=== PATIENT | male | born 1945 | race Caucasian/White ===

== ENCOUNTER 2016-11-12 10:47 | Inpatient (IN) | payer SELFPAY ==
[2016-11-12] MEDS ORDERED: Haloperidol Lactate 5 mg/mL 1mL Vial IM PRN (11:06)
[2016-11-12] MEDS ORDERED: Haloperidol Lactate 5 mg/mL 1mL Vial ONE (11:10)
--- NOTE | 2016-11-12 11:23 | ED Physician Chart ---
Chief Complaint/HPI - Patient Information Date Seen:: 11/12/16 Time Seen:: 11:00 Chief Complaint:: agitation History of Present Illness:: This elderly white male was brought to the emergency department by the police. He was placed on the fifth 150. He was found panhandling and yelling at people walking by. Patient refuses to give his name. He did state something like that if he was given any antipsychotic medications some gangsters would kill him. Allergies:: Allergies Allergy/AdvReac Type Severity Reaction Status Date / Time No Known Allergies Allergy Verified 11/12/16 10:53 Vitals:: Vital Signs - 8 hr 11/12/16 10:54 HR 110 RR 20 BP 117/89 Historian:: Patient, Other (Police Department) Review:: Nurse's Note Reviewed Review of Systems - Review of Systems General/Constitutional: No fever, No chills Skin: No skin lesions Head: No headache Eyes: No loss of vision ENT: No earache Neck: No neck pain Cardio Vascular: No chest pain, No palpitations Pulmonary: No SOB GI: No nausea, No vomiting G/U: No dysuria Musculoskeletal: No bone or joint pain Endocrine: No polyuria, No polydipsia Psychiatric: Other (unknown) Hematopoietic: No bruising Allergic/Immuno: No urticaria Neurological: No syncope Family Medical History - Family Member Father History Unknown: Yes Physical Exam - Physical Examination General/Constitutional: Well-developed, well-nourished, Alert, No distress, Non- toxic appearing, Ambulatory Other Gen/Cons comments:: Belligerent and disheveled. Patient refuses to answer questions concerning orientation, history of present illness, review of systems, family history, past medical history. When asked questions patient replies none of your business. Labs/Radiology/EKG Results - Lab Results Results: Laboratory Results - last 24 hr 11/12/16 11/12/16 11/12/16 11:20 11:20 11:20 WBC 19.8 H RBC 4.87 Hgb 15.6 Hct 46.0 MCV 94.4 MCH 31.9 H MCHC Differential 33.8 RDW 13.3 Plt Count 400 MPV 7.5 Sodium 135 L Potassium 3.9 Chloride 110 H Carbon Dioxide 23.8 Anion Gap 5.1 L BUN 12 Creatinine 0.8 Est GFR ( Amer) > 60.0 Est GFR (Non-Af Amer) > 60.0 BUN/Creatinine Ratio 15.0 Glucose 166 H Calcium 9.3 Triglycerides 101 Cholesterol 125 LDL Cholesterol Direct 76 HDL Cholesterol 43 Urine Source Urine Color Urine Clarity Urine pH Ur Specific [place] Urine Protein Urine Glucose (UA) Urine Ketones Urine Blood Urine Nitrate Urine Bilirubin Urine Urobilinogen Ur Leukocyte Esterase Urine RBC Urine WBC Ur Epithelial Cells Urine Bacteria Urine Mucus Salicylates < 25.0 L Acetaminophen < 10.0 L Ethyl Alcohol 181 H 11/12/16 11:30 WBC RBC Hgb Hct MCV MCH MCHC Differential RDW Plt Count MPV Sodium Potassium Chloride Carbon Dioxide Anion Gap BUN Creatinine Est GFR ( Amer) Est GFR (Non-Af Amer) BUN/Creatinine Ratio Glucose Calcium Triglycerides Cholesterol LDL Cholesterol Direct HDL Cholesterol Urine Source CLEAN C Urine Color YELLOW Urine Clarity CLEAR Urine pH 5.5 Ur Specific [place] 1.025 Urine Protein NEGATIVE Urine Glucose (UA) 500 H Urine Ketones TRACE Urine Blood NEGATIVE Urine Nitrate NEGATIVE Urine Bilirubin SMALL H Urine Urobilinogen 0.2 Ur Leukocyte Esterase NEGATIVE Urine RBC NONE SEEN Urine WBC 0-2 Ur Epithelial Cells FEW Urine Bacteria NONE SEEN Urine Mucus FEW Salicylates Acetaminophen Ethyl Alcohol - Radiology Results Results: CXR negative Assessment - Assessment General Assessment: has to be admitted because was placed on a [facility]0. ED Septic Shock - . Is Septic Shock (SBP<90, OR Lactate>4 mmol\L) present?: No - <6hrs of presentation: Vital Signs: Vital Signs - 8 hr 11/12/16 10:54 HR 110 RR 20 BP 117/89 Reassessment (Disposition) - Reassessment Reassessment Condition:: Unchanged, Improved - Diagnosis Diagnosis:: acute and chronic alcohol abuse - Patient Disposition Admitted to:: Med/Surg Spoke to:: Catrachito Rico Admitting Medical Physician:: Catrachito Rico Condition at Disposition:: Stable, Improved ED Discharge Plan - Patient Disposition Instructions: Psychosis
[2016-11-12 11:29] LABS: HEMOGLOBIN 15.6 gm/dL (12.6-17.4); MEAN CELL VOLUME 94.4 fl (80-99); MEAN CORPUSCULAR HEMOGLOBIN 31.9 pg (27.0-31.0); MEAN CORPUSCULAR HGB CONC 33.8 pg (28.0-36.0); MEAN PLATELET VOLUME 7.5 fl; PLATELET COUNT 400 Th/cmm (150-400); RED BLOOD COUNT 4.87 Mil/cmm (3.80-5.80); RED CELL DISTRIBUTION WIDTH 13.3 % (11.5-20.0)
[2016-11-12 11:30] LABS: WHITE BLOOD COUNT 19.8 Th/cmm (4.8-10.8)
[2016-11-12 11:44] LABS: ACETAMINOPHEN < 10.0 ug/mL (10.0-30.0); ANION GAP 5.1 (7.0-16.0); BUN - UREA NITROGEN 12 mg/dL (7-25); CALCIUM SERUM 9.3 mg/dL (8.6-10.3); CARBON DIOXIDE 23.8 mEq/L (21.0-31.0); CHLORIDE 110 mEq/L (98-107); CHOLESTEROL 125 mg/dL (<200); CREATININE - SERUM 0.8 mg/dL (0.7-1.3); GLUCOSE 166 mg/dL (70-105); POTASSIUM SERUM 3.9 mEq/L (3.5-5.1); SODIUM SERUM 135 mEq/L (136-145); TRIGLYCERIDES 101 mg/dL (<150)
[2016-11-12 12:12] LABS: URINE COLOR YELLOW; URINE GLUCOSE (UA) 500 mg/dL (NEGATIVE)
[2016-11-12 12:13] LABS: URINE BILIRUBIN SMALL (NEGATIVE); URINE KETONE TRACE mg/dL (NEGATIVE)
[2016-11-12 12:14] LABS: URINE BLOOD NEGATIVE (NEGATIVE); URINE PH 5.5; URINE PROTEIN NEGATIVE (NEGATIVE); URINE UROBILINOGEN 0.2 E.U./dL (0.2 - 1.0)
[2016-11-12 12:24] LABS: URINE BACTERIA NONE SEEN /hpf (NONE SEEN); URINE EPITHELIAL CELLS FEW /lpf (FEW); URINE RBC NONE SEEN /hpf (0-5); URINE WBC 0-2 /hpf (0-5)
[2016-11-12] MEDS ORDERED: Multivitamin Inj 10 ML, Thiamine HCL 100 MG, Magnesium Sulfate 2 GM, Folic Acid 1 MG in... IV ONE (12:30)
[2016-11-12] MEDS ORDERED: Multivitamin Inj 10 mL Vial IV ONE (12:39)
[2016-11-12] MEDS ORDERED: Magnesium Sulfate 1 gm/2 mL 2mL Vial IV ONE (12:43)
[2016-11-12] MEDS ORDERED: Thiamine 100 mg/mL 2mL Vial ONE (12:44)
[2016-11-12 13:14] LABS: BAND NEUTROPHILE 4 % (0-10); BASOPHIL 1 % (0-3); EOSINOPHIL 1 % (0-5); NEUTROPHILS 77 % (40-80); PLATELET ESTIMATE ADEQUATE (NORMAL); PLATELET MORPHOLOGY NORMAL (NORMAL); TOTAL CELLS COUNTED 100
--- NOTE | 2016-11-12 13:18 | Diagnostic Imaging Report ---
Portable chest x-ray History: Pain Allowing for portable technique the heart size is normal. No focal pulmonary parenchymal processes. No hilar or mediastinal abnormalities. Impression: No acute abnormalities.
[2016-11-12] MEDS ORDERED: Haloperidol Lactate 5 mg/mL 1mL Vial IM STA (16:57)
[2016-11-12] MEDS ORDERED: Levofloxacin 500mg/100mL 500 MG/100 ML BAG IV SCH (17:41)
[2016-11-12] MEDS ORDERED: Pneumococcal Vaccine 0.5 mL Vial IM ONE (18:46)
--- NOTE | 2016-11-12 18:56 | Admit Criteria Form ---
Admit Criteria Forms - Admit Criteria Diagnosis: SUBSTANCE ABUSE Clinical Indications for Admission to Inpatient Care (Place 'X' for any and all applicable criteria): Admission is indicated due to ANY ONE of the following(1)(2)(3)(4)(5): [ ]I. Delirium due to alcohol or sedative A withdrawal B ( Also use Delirium Criteria as appropriate)1,6,7 [ ]II. Alcohol or sedative withdrawal with high-risk indicator as manifested by ALL of the following1,3,6,7 [ ]a) Signs of withdrawal as indicated by ANY ONE of the following: [ ]i) Heart rate greater than 100 beats per minute [ ]ii) Nausea or vomiting [ ]iii) Other physical signs of alcohol or sedative withdrawal [ ]iv) Tremor [ ](v) Increased perspiration [ ]b) Elevated risk due to a historical or comorbid factor as indicated by ANY ONE of the following: [ ]i) History of delirium due to alcohol or sedative withdrawal [ ]ii) History of repetitive seizures due to alcohol or sedative withdrawal C [ ]iii) Intrinsic seizure disorder (epilepsy) [ ]iv) [ ]v) Comorbid medical condition that can be dangerously destabilized by alcohol or sedative withdrawal (eg, severe cardiac disease) [ ]III. Severe alcohol or sedative withdrawal that is unmanageable at lower level of care, as manifested by ALL of the following1,3,6,7 [ ]a) Marked signs of withdrawal as indicated by ANY ONE of the following: [ ]i) Heart rate greater than 120 beats per minute [ ]ii) Vomiting [ ]iii) Grossly visible tremor [ ]iv) Profuse perspiration [ ]v) Temperature greater than 38.3 degrees C (101 degrees F) [ ]vi) Other marked physical signs of alcohol or sedative withdrawal [ ]b) Signs of withdrawal which require inpatient treatment as indicated by ANY ONE of the following: [ ]i) Inadequate response to pharmacotherapy in emergency department or other appropriate lower level of care [ ]ii) Lower level of care not feasible or appropriate (eg, unavailable or inappropriate to patient condition or treatment history) [ ]IV. Severely complicated opioid withdrawal that requires [id number] care as manifested by ALL of the following 1,4,7,11 [ ]a) Vomiting or diarrhea due to opioid withdrawal [ ]b) Marked dehydration or electrolyte abnormality that cannot be corrected (to near normal) in an emergency department or other ambulatory setting (eg, serum K<2.5 mEq/L , serum Na <130 mEq/L [X]V. Acute toxicity or instability from substance use requiring inpatient care (eg, altered mental status, respiratory depression) that has had inadequate response to, or is judged inappropriate for, treatment at lower level of care (eg, emergency department, observation care) [ ]. Other inpatient medical or psychiatric care is needed due to risk or comorbidity as indicated by ALL of the following(18): [ ]a) Treatment is needed because of patient risk due to ANY ONE of the following: [ ]i) Medical condition (eg, severe cardiac disease) that requires 24-hour monitoring and treatment due to danger of destabilization by alcohol or sedative withdrawal is present [ ]ii) Imminent danger to self is present due to ANY ONE of the following(19)(20)(21): [ ]1) Imminent risk for recurrence of Suicide attempt or act of serious Harm to self is present as indicated by ALL of the following: [ ]A. There has been very recent Suicide attempt or deliberate act of serious Harm to self. [ ]B. There has not been Sufficient relief of the factors that precipitated the attempt or act. [ ]2) Current plan for suicide or serious Harm to self is present. [ ]3) Command auditory hallucinations for suicide or serious Harm to self are present. [ ]4) Patient has persistent Thoughts of suicide or serious Harm to self that cannot be adequately monitored at lower level of care due to ANY ONE of the following[E]: [ ]A. Insufficient behavioral care is available to meet patient needs (such as required provider or lower level facility is not available). [ ]B. Patient characteristics such as high impulsivity or unreliability are present. [ ]C. Environment does not support recovery. [ ]D. Ready access to lethal means [ ]iii) Imminent danger to others is present due to ANY ONE of the following(19)(23)(24): [ ]1) Imminent risk for recurrence of attempt to seriously Harm another is present as indicated by ALL of the following: [ ]A. There has been very recent attempt to seriously Harm another. [ ]B. There has not been Sufficient relief of factors that precipitated the attempt or act. [ ]2) Current plan for homicide or serious Harm to another is present. [ ]3) Command auditory hallucinations or paranoid delusions contributing to risk for homicide or serious Harm to another are present. [ ]4) Patient has persistent thoughts of homicide or serious Harm to another that cannot be adequately monitored at lower level of care because of ANY ONE of the following[E]: [ ]A. Insufficient behavioral care is available to meet patient needs (such as required provider or lower level facility is not available). [ ]B. High impulsivity or unreliability is present. [ ]C. Environment does not support recovery. [ ]D. Ready access to lethal means [ ]iv) Severe dysfunction in daily living related to substance use disorder as indicated by ANY ONE of the following(33): [ ]a) Extreme deterioration in social interactions (eg , threatening behaviors with little or no provocation) [ ]b) Complete withdrawal from all social interactions [ ]c) Complete neglect of self-care with associated impairment in physical status [ ]d) Extreme disruption in vegetative function (eg, life-sustaining functions such as eating) [ ]e) Complete inability to maintain any appropriate aspect of personal responsibility in any adult roles (eg, occupational, parental ) [ ]v) Other emotional, behavioral, or cognitive symptoms of sufficient severity to preclude ability to engage in recovery without 24-hour monitoring and treatment are present. [ ]vi) Patient requires monitoring due to substance use in combination with medical, psychiatric, or environmental factors that prevent adequate management at lower level of care as indicated by ALL of the following: [ ]1) Significant substance use effects, medical conditions, or psychiatric comorbidities are present as indicated by ANY ONE of the following [ ]A. Substance toxicity or withdrawal requires medical monitoring. [ ]B. Medical comorbidity requires medical monitoring for destabilization due to alcohol or sedative withdrawal. [ ]C. Emotional, behavioral, or cognitive symptoms of sufficient severity to limit or preclude ability to engage in treatment are present. [ ]2) Conditions, barriers, or environmental factors preventing treatment at lower level of care are present as indicated by ANY ONE of the following: [ ]A. Psychiatric comorbidity or opposition to treatment requires 24-hour setting to ensure adherence with medical treatment or adequate motivating interventions. [ ]B. Severe behavioral problems (eg, escalating relapse behaviors, acute psychiatric or substance use crisis, inability to recognize signs and symptoms of relapse ) require 24-hour setting for relapse prevention.[F] [ ]C. Living environment outside of 24-hour setting prevents recovery (eg, abuse, victimization, patient inability to cope). [ ]b Treatment situation and needs are appropriate for inpatient level ( instead of using lower level of care) as indicated by ANY ONE of the following( 25)(26)(27): [ ]i) Patient is unwilling to participate voluntarily and requires treatment (eg, legal commitment) in involuntary unit.(23) [ ]ii) Voluntary treatment at lower level is not feasible (eg, lower level care unavailable or inappropriate for patient condition). [ ]iii) Physical restraint, seclusion, or other involuntary control is needed (eg, actively violent patient for whom treatment in an involuntary unit is deemed necessary in accord with applicable medical and legal criteria).(23) [ ]iv) [id number] medical or nursing care to address symptoms and initiate interventions is required; specific need is identified. Extended stay beyond goal length of stay may be needed for: [ ]a) Onset of delirium [ ]b) Recurrent seizures [ ]c) Persistent severe alcohol or sedative withdrawal [ ]d) Persistent dangerous behavior The original [facility] content created by [employer] has been revised. The portions of the content which have been revised are identified through the use of italic text or in bold, and [email or web address] has neither reviewed nor approved the modified material. All other unmodified content is copyright [email or web address].. Please see references footnoted in the original [facility] edition 2016 Admit Criteria Met?: Yes
[2016-11-12] MEDS: Sodium Chloride 0.45% 1,000 ML IV SCH (19:38)
[2016-11-12] MEDS ORDERED: Haloperidol Lactate 5 mg/mL 1mL Vial IM ONE (23:22)
[2016-11-13] MEDS: Sodium Chloride 0.45% 1,000 ML IV SCH (07:38)
[2016-11-13] MEDS: Multivitamin Tab PO SCH (11:35)
[2016-11-13 13:11] LABS: HEP B CORE IGM Negative (Negative); HEP C ANTIBODY <0.1 s/co ratio (0.0-0.9)
--- NOTE | 2016-11-13 13:31 | History & Physical ---
ADMIT DATE: 11/12/2016 CHIEF COMPLAINT: Agitation. HISTORY OF PRESENT ILLNESS: This is a 71-year-old male likely to be homeless who was apparently panhandling yesterday and at times been belligerent, was stopped by the police and when he became uncooperative, he was placed on a 5150 and was brought into the ER for further management and eval. The patient is an extremely poor historian and is uncooperative, but states that in the past has been on antipsychotics. There is no other history available as the patient is reluctant to provide any history. Pertinent findings on admission include a white count of 19.8 and alcohol level of 181 and glucose of 166. The patient has been admitted to the medical/surgical floor with a 1:1 sitter. PAST MEDICAL HISTORY: Unknown. PAST SURGICAL HISTORY: Unknown. FAMILY HISTORY: Unknown. SOCIAL HISTORY: He smokes about a pack a day. He drinks occasionally. He did not provide any history as far as drug usage and did not provide any history if he is homeless. REVIEW OF SYSTEMS: Very uncooperative, so unable to gather any review of systems. PHYSICAL EXAMINATION: VITAL SIGNS: Temperature 97.8, pulse 85, BP 125/85, satting 98% on room air, respirations 18. GENERAL: Well nourished, well-developed, somewhat disheveled. He is awake, alert but uncooperative. HEAD AND NECK: Normocephalic, atraumatic. Pupils reactive to light. Extraocular movements are intact. NECK: No JVD or LAD. CARDIAC: Regular rate and rhythm without any murmurs. LUNGS: Decreased at the bases. No audible rhonchi or wheezing. Lungs are clear to auscultation bilaterally. ABDOMEN: Soft, supple, nontender, nondistended, normoactive bowel sounds. EXTREMITIES: There is no edema of lower extremity. LABORATORY DATA: White count 19.8, H and H 15/46, and platelet count of 400. Sodium 135, potassium 3.9, chloride 110, CO2 23, BUN 12, creatinine 0.8, glucose 166. TSH is 0.24. Urine shows small bilirubin and positive for glucose, ethyl alcohol was 181, negative for acetaminophen and negative for salicylates. RPR is nonreactive. DIAGNOSTICS: Chest x-ray shows no acute abnormalities. IMPRESSION: 1. Agitation, slight psychosis. 2. Possible psych illness. 3. Leukocytosis with no clear source of infection. 4. Hyperglycemia, rule out diabetes. 5. Alcohol intoxication. PLAN: The patient has been admitted to the medical/surgical floor with a 1:1 sitter for further management and care. At this time, the patient has been placed on IV antibiotics, but he is currently refusing, so he is agreeable to take Levaquin at 500 mg every day. Psych eval has been done and they supposed to transfer him to psych thomas for further management and care. JOB# [id number]
[2016-11-13 14:32] LABS: % BASOPHILS 1.3 % (0.0-2.0); % EOSINOPHILS 4.2 % (0.0-5.0); % LYMPHOCYTES 17.5 % (20.0-50.0); % MONOCYTES 9.2 % (2.0-10.0); % NEUTROPHILS 67.8 % (40.0-80.0); MEAN CELL VOLUME 95.1 fl (80-99); MEAN CORPUSCULAR HEMOGLOBIN 32.7 pg (27.0-31.0); MEAN CORPUSCULAR HGB CONC 34.4 pg (28.0-36.0); MEAN PLATELET VOLUME 7.8 fl; NEUTROPHILE ABSOLUTE 6.4 Th/cmm (1.8-8.0); RED BLOOD COUNT 4.05 Mil/cmm (3.80-5.80); RED CELL DISTRIBUTION WIDTH 12.9 % (11.5-20.0)
[2016-11-13 14:35] LABS: HEMATOCRIT 38.5 % (39.0-49.0); HEMOGLOBIN 13.2 gm/dL (12.6-17.4); PLATELET COUNT 303 Th/cmm (150-400); WHITE BLOOD COUNT 9.5 Th/cmm (4.8-10.8)
[2016-11-13 14:38] LABS: ALB/GLOB RATIO 1.3 (1.0-1.8); ALKALINE PHOSPHATASE 43 U/L (34-104); ANION GAP 6.9 (7.0-16.0); BILIRUBIN,TOTAL 0.5 mg/dL (0.3-1.0); BUN - UREA NITROGEN 9 mg/dL (7-25); BUN/CREATININE RATIO 12.9; CALCIUM SERUM 8.6 mg/dL (8.6-10.3); CARBON DIOXIDE 24.6 mEq/L (21.0-31.0); CHLORIDE 100 mEq/L (98-107); CHOLESTEROL 102 mg/dL (<200); CREATININE - SERUM 0.7 mg/dL (0.7-1.3); GLUCOSE 154 mg/dL (70-105); MAGNESIUM 1.8 mg/dL (1.9-2.7); POTASSIUM SERUM 3.5 mEq/L (3.5-5.1); SGOT 37 U/L (13-39); SGPT/ALT 18 U/L (7-52); SODIUM SERUM 128 mEq/L (136-145); TRIGLYCERIDES 148 mg/dL (<150)
--- NOTE | 2016-11-14 07:46 | Consultation ---
DATE OF CONSULTATION: 11/13/2016 IDENTIFYING INFORMATION: The patient is a 71-year-old male. REASON FOR CONSULTATION: The patient, who was admitted because of substance abuse, had acute and chronic alcohol dependence. I do not have any information about details; however, he is also on a hold, that chart was not available, so I am not sure why he is on a hold. However, the patient apparently was acting out yesterday, had to be medicated, wanting to leave the hospital. He has been on a detox protocol from the alcohol and I added Neurontin yesterday. The patient when I tried to talk to him, he refused to participate. He thought that he was 51 years of age. 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 He has been homeless. He was not willing to talk to me about the details of his substance abuse. PAST PSYCHIATRIC HISTORY: The patient refused to elaborate. MEDICAL HISTORY: I will defer to Dr. Rico. The patient has been on a detox protocol for the alcohol, also initiated Neurontin on him, had to be given emergency medication yesterday. FAMILY AND SOCIAL HISTORY: The patient reported he is . He was unable to tell me if he has any children. He denies any past psychiatric; however, he is not a reliable historian. 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 He denies having any legal problem; however, he very unreliable historian. MENTAL STATUS EXAMINATION: The patient is appropriately dressed, not well groomed. He is on one to one. He was alert, but he was confused. He believes that he is 51 years of age. He was unable to participate in meaningful conversation. 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 He was unable to participate with me in a meaningful mental status examination. He was in denial about any intent to harm himself or anybody. He denied any hallucination; however, he is unpredictable, impulsive. His long and short term could not be tested or at least it is poor. His insight and judgment were impaired. IMPRESSION: AXIS I: Chronic alcohol dependence, also cognitive disorder, not otherwise specified, and rule out psychosis, not otherwise specified. PLAN: I would recommend to continue with the detox and make sure the patient gets on vitamin B1, thiamine, folic acid, and multivitamins; continue detox; continue seizure precaution, and Neurontin. We may need to add an antipsychotic depending on how he is doing and the patient needs to be transferred to [facility] and needs to be kept on one-to-one. Thank you very much for allowing me to participate in the care of this most interesting gentleman. JOB# [id number]
[2016-11-14] MEDS: Multivitamin Tab PO SCH (10:00)
[2016-11-15] MEDS: Multivitamin Tab PO SCH (09:52)
--- NOTE | 2016-11-25 01:22 | Discharge Summary ---
DATE OF DISCHARGE: 11/15/2016 ADMITTING DIAGNOSES: Agitation, psychosis, possible psych illness, leukocytosis with no clear source of infection, hyperglycemia, rule out diabetes, and alcohol intoxication. DISCHARGE DIAGNOSES: Agitation, psychosis was improved, leukocytosis resolved, chronic alcohol dependence, cognitive disorder. CONSULTANTS: Dr. Pate, Psychiatry. MAJOR PROCEDURES: None. DISCHARGE MEDICATIONS: None. BRIEF HOSPITAL COURSE: A 71-year-old homeless gentleman who was brought in to the ER after he was noted to be acting in a disrupting manner, panhandling and being belligerent. He was brought in given that he also had a strong alcohol smell and was placed on a 5150. He was also noted to have a white count of 19.8 upon admission, but had no signs or symptoms of infection. X-ray showed no acute abnormalities and rest of his other labs were within normal limits. He was also tested for salicylates and acetaminophen, which came back negative. Given the 5150, the patient was placed on 1:1 sitter and psych eval was placed. He remained stable throughout his hospital stay, denying any medical history and been for the most part uncooperative, not accepting any IV or p.o. medications. Once the 5150, elapsed, he decided to leave against medical advice. His leukocytosis resolved by hospital day #2. CONDITION ON DISCHARGE: Apparently stable. He left against medical advice after 5150 . JOB# [id number] [facility]
== END 2016-11-15 11:06 | disposition left against medical advice (07) | DRG 894 ==
LOC: ER 10:47 → MSI 14:56
PROVIDERS: ADMIT Internal Medicine; ATTEND Internal Medicine
DX: F10.239 Alcohol dependence with withdrawal, unspecified (principal); E87.1 Hypo-osmolality and hyponatremia; F10.220 Alcohol dependence with intoxication, uncomplicated; D72.829 Elevated white blood cell count, unspecified; R73.9 Hyperglycemia, unspecified; F09 Unspecified mental disorder due to known physiological condition; F32.9 Major depressive disorder, single episode, unspecified; Z53.21 Procedure and treatment not carried out due to patient leaving prior to being seen by health care provider; Z59.0 Homelessness
CPT/HCPCS: 36415-UA; 71010-TC; 80048-TC; 80053-TC; 80061-TC; 80074-90; 80320-TC; 80329-TC; 81001-TC; 83735-TC; 84443-TC; 85007-TC; 85025-TC; 85027-TC; 86592-TC; 93005; J1200; J1630; J1956; J2060; J3411; J3475; J7030; X6598; Z7610